=== PATIENT | female | born 1965 | race Caucasian/White ===

== ENCOUNTER 2022-11-21 21:54 | Emergency (ER) | payer OTHER, SELFPAY ==
[2022-11-21 22:05] VITALS: BP 174/90; PULSE 86; RESP 20; TEMP 36.6; O2SAT 96; BMI 28.3
--- NOTE | 2022-11-21 22:31 | DI.CT.S_ITS ---
PROCEDURE: CT ABDOMEN PELVIS W CON INDICATIONS: Generalized abdominal discomfort TECHNIQUE: After the administration of IV contrast, axial sections were acquired from the lung bases to the pubic symphysis. Coronal and sagittal reformats were performed. For radiation dose reduction, the following was used: automated exposure control, adjustment of mA and/or kV according to patient size. COMPARISON: None. FINDINGS: Image quality: Excellent. Lung bases: Unremarkable. Heart: Heart is normal in size. ABDOMEN: Liver: No mass lesion. Gallbladder: Within normal limits without calcified gallstones. Biliary ducts: No biliary ductal dilatation. Pancreas: Unremarkable. Spleen: Normal in size. Adrenal Glands: No adrenal nodules. Kidneys and Ureters: No hydronephrosis. Stomach and Bowel: Stomach, small bowel loops, and colon are normal in caliber and wall thickness. The appendix is normal. Peritoneum: No abnormal intraperitoneal fluid. No free air. Ventral Wall: No hernia. Abdominal Nodes: No retroperitoneal or mesenteric adenopathy by size criteria. Vessels: Aorta and inferior vena cava are normal in size. PELVIS: Pelvic Organs: There is an enhancing mass within the right aspect of the uterus measuring up to 3.5 x 3.0 cm likely representing a fibroid. There is a suspected submucosal component. Bladder: Unremarkable. Pelvic Nodes: No enlarged lymph nodes. Miscellaneous: No inguinal hernias are seen. Bones: Visualized osseous structures demonstrate no suspicious focal lesions. IMPRESSION: 1. Right paracentral uterine mass likely representing a fibroid with suspected submucosal extension. Dictated by: Genaro Fuentes M.D. on 11/22/2022 at 0:04 Approved by: Genaro Fuentes M.D. on 11/22/2022 at 0:06
--- NOTE | 2022-11-21 22:31 | ED.GENADULT ---
HPI - General Adult General Chief complaint: Abdominal Pain Stated complaint: abd pain Time Seen by Provider: 11/21/22 22:28 Source: patient Mode of arrival: Ambulatory History of Present Illness HPI narrative: Patient is a 57-year-old female who is here for evaluation of abdominal pain. She states she has had abdominal pain for the past several days/weeks. She is been having some issues with constipation because she is been on medicines for back pain. She did have a loose bowel movement this morning. Before that it had been for 5 days since her last bowel movement. No vomiting. No urinary symptoms. No fevers. No vaginal symptoms. She was concerned about potentially being constipated. Review of Systems Constitutional Constitutional: Reports system reviewed and no additional complaints, except as documented Gastrointestinal Gastrointestinal: Reports system reviewed and no additional complaints, except as documented Genitourinary Genitourinary: Reports system reviewed and no additional complaints, except as documented Musculoskeletal Musculoskeletal: Reports system reviewed and no additional complaints, except as documented Integumentary/Breasts Skin/Breast: Reports system reviewed and no additional complaints, except as documented Patient History Social History Smoking Status: Current every day smoker Smoking Status: Current every day smoker Substance Use Type: does not use Exam Initial Vital Signs Initial Vital Signs: Vital Signs Temperature 98 F 11/21/22 22:05 Pulse Rate 86 11/21/22 22:05 Respiratory Rate 20 11/21/22 22:05 Blood Pressure 174/90 H 11/21/22 22:05 Pulse Oximetry 96 11/21/22 22:05 Oxygen Delivery Method Room Air 11/21/22 22:05 HENAZ Head: normal to inspection and normocephalic Resp Effort & Inspection: normal respiratory effort Auscultation: clear to auscultation bilaterally Cardio Rate: regular rate Rhythm: regular rhythm GI Inspection: normal to inspection and non-distended Palpation: soft, No firm, No guarding and tender (Diffuse) Neuro General: patient alert, patient awake and moves all extremities Extrem General: capillary refill normal Course Orders Ordered: ED Orders 11/21/22 22:21 EKG-12 Lead Stat 11/21/22 22:31 CT abdomen pelvis w con Stat 11/21/22 22:32 Complete Blood Count AUTO DIFF Stat Comprehensive Metabolic Panel Stat Lipase Stat Ondansetron HCl (Ondansetron 4 Mg Odt) 4 mg PO NOW PRN PRN Reason: Nausea And Vomiting Ondansetron HCl (Ondansetron 4 Mg/2 Ml Inj) 4 mg IV NOW PRN PRN Reason: Nausea And Vomiting Vital Signs Vital signs: Vital Signs - 8 hr 11/21/22 22:05 Temperature 98 F Pulse Rate 86 Respiratory Rate 20 Blood Pressure 174/90 H Pulse Oximetry 96 Oxygen Delivery Method Room Air Medical Decision Making Lab Data Lab results reviewed: Yes I reviewed the patient's lab results. 11/21/22 22:32 11/21/22 22:32 Labs: Lab Results 11/21/22 11/21/22 Range/Units 22:32 22:32 WBC 7.8 (4.5-11.0) X10^3/uL RBC 4.60 (4.0-5.2) X10^6/uL Hgb 14.2 (12.0-16.0) g/dL Hct 40.9 (36-46) % MCV 88.9 (80-100) fL MCH 30.9 (26-34) PG MCHC 34.7 (30-36) % RDW 13.7 (11.6-14.8) % Plt Count 302 (150-400) X10^3/uL Neut % (Auto) 62.3 (50-75) % Lymph % (Auto) 25.8 (25-40) % [place] % (Auto) 9.0 (3-14) % Eos % (Auto) 2.8 (2-4) % Baso % (Auto) 0.1 (0-2) % Neut # (Auto) 4900 (7909-7189) /uL Lymph # (Auto) 2000 (4481-5213) /uL [place] # (Auto) 700 (0-900) /uL Eos # (Auto) 200 (0-450) /uL Baso # (Auto) 0 (0-100) /uL Sodium 138 (137-145) mmol/L Potassium 4.5 (3.4-5.1) mmol/L Chloride 108 H (98-107) mmol/L Carbon Dioxide 25 (22-32) mmol/L BUN 25 H (7-17) mg/dL Creatinine 0.58 (0.52-1.04) mg/dL Estimated GFR > 60 (>60) mL/min BUN/Creatinine Ratio 43.1 H (6-22) Glucose 107 H (70-100) mg/dL Calcium 9.4 (8.4-10.2) mg/dL Total Bilirubin 0.4 (0.2-1.3) mg/dL AST 37 H (14-36) IU/L ALT 44 H (<35) IU/L Alkaline Phosphatase 132 H (38-126) U/L Total Protein 7.6 (6.3-8.2) g/dL Albumin 4.0 (3.5-5.0) g/dL Globulin 3.6 (1.7-4.1) g/dL Albumin/Globulin Ratio 1.1 (1.0-2.8) Lipase 140 (23-300) U/L Point of Care Testing Test Results Negative Urine Dip Bedside Urine Glucose Negative Bedside Urine Bilirubin - Negative Bedside Urine Ketone +/- 5 Urine Specific [place] 1.020 Bedside Urine Occult Blood - Negative Bedside Urine pH 6.0 Bedside Urine Protein - Negative Bedside Urine Urobilinogen - Negative Bedside Urine Nitrite - Negative Bedside Urine Leukocytes +/- 15 Esterase Point of care testing: Point of Care Testing Test Results Negative Urine Dip Bedside Urine Glucose Negative Bedside Urine Bilirubin - Negative Bedside Urine Ketone +/- 5 Urine Specific [place] 1.020 Bedside Urine Occult Blood - Negative Bedside Urine pH 6.0 Bedside Urine Protein - Negative Bedside Urine Urobilinogen - Negative Bedside Urine Nitrite - Negative Bedside Urine Leukocytes +/- [address] scan - abdomen/pelvis: Radiologist's Impression: PROCEDURE:? CT ABDOMEN PELVIS W CON ? INDICATIONS:? Generalized abdominal discomfort ? TECHNIQUE:? After the administration of IV contrast, axial sections were acquired from the lung bases to the pubic symphysis.? Coronal and sagittal reformats were performed.? For radiation dose reduction, the following was used:? automated exposure control, adjustment of mA and/or kV according to patient size. ? COMPARISON:? None. ? FINDINGS:? Image quality:? Excellent.? ? Lung bases:? Unremarkable.? ? Heart:? Heart is normal in size. ? ? ABDOMEN: Liver:? No mass lesion. Gallbladder:? Within normal limits without calcified gallstones.? ? Biliary ducts:? No biliary ductal dilatation.? ? Pancreas:? Unremarkable.? ? Spleen:? Normal in size.? ? Adrenal Glands:? No adrenal nodules.? ? Kidneys and Ureters:? No hydronephrosis.? ? ? Stomach and Bowel:? Stomach, small bowel loops, and colon are normal in caliber and wall thickness.? The appendix is normal. Peritoneum:? No abnormal intraperitoneal fluid.? No free air.? ? Ventral Wall: ? No hernia.? Abdominal Nodes:? No retroperitoneal or mesenteric adenopathy by size criteria.? Vessels:? Aorta and inferior vena cava are normal in size.? ? PELVIS: Pelvic Organs:? There is an enhancing mass within the right aspect of the uterus measuring up to 3.5 x 3.0 cm likely representing a fibroid.? There is a suspected submucosal component. Bladder:? Unremarkable.? ? Pelvic Nodes: No enlarged lymph nodes.? Miscellaneous: No inguinal hernias are seen. ? ? ? Bones:? Visualized osseous structures demonstrate no suspicious focal lesions. ? IMPRESSION:? ? 1. Right paracentral uterine mass likely representing a fibroid with suspected submucosal extension.? MDM Narrative Medical decision making narrative: Labs are unremarkable. CT scan shows uterine fibroid but I have low suspicion that this is the cause of her discomfort today. There was no signs of any infectious etiology that would require antibiotics. No surgical indication found. She denies any urinary symptoms. Low suspicion for cardiac or lung pathology as the cause of her symptoms as well. Plan will be is to discharge the patient home. She was given return precautions. Advised that she could take some yodu-zny-zalmamy medicine such as Pepto-Bismol in order to off some of her symptoms as well. She expressed understanding and agreement with plan. Discharge Plan Departure Patient Disposition: Home Clinical Impression: Abdominal pain Instructions: DI for Abdominal Pain-Adult Activity Restrictions/Additional Instructions: Recommend that you continue to take all of your medications as directed and keep all of your scheduled medical appointments. I do recommend a bland diet for the next couple days. Return to the emergency department for new or worsening symptoms. Referrals: Howard Akins MD [Primary Care Provider] - Stand Alone Forms: Patient Portal/API
[2022-11-21 22:40] LABS: Add Manual Diff / Slide Review NO; Basophils Absolute Auto 0 /uL (0-100); Basophils Percent Auto 0.1 % (0-2); Eosinophils Absolute Auto 200 /uL (0-450); Eosinophils Percent Auto 2.8 % (2-4); Hematocrit 40.9 % (36-46); Hemoglobin 14.2 g/dL (12.0-16.0); Lymphocytes Absolute Auto 2000 /uL (1100-4500); Lymphocytes Percent Auto 25.8 % (25-40); Mean Corpuscular HGB Conc 34.7 % (30-36); Mean Corpuscular Hemoglobin 30.9 PG (26-34); Mean Corpuscular Volume 88.9 fL (80-100); Monocytes Absolute Auto 700 /uL (0-900); Neutrophils Absolute Auto 4900 /uL (1500-7000); Neutrophils Percent Auto 62.3 % (50-75); Platelet Count 302 X10^3/uL (150-400); Red Cell Distribution Width 13.7 % (11.6-14.8); White Blood Cell Count 7.8 X10^3/uL (4.5-11.0)
[2022-11-21 22:53] LABS: Alanine Aminotransferase 44 IU/L (<35); Albumin Globulin Ratio 1.1 (1.0-2.8); Alkaline Phosphatase 132 U/L (38-126); Aspartate Aminotransferase 37 IU/L (14-36); BUN Creatinine Ratio 43.1 (6-22); Bilirubin Total 0.4 mg/dL (0.2-1.3); Blood Urea Nitrogen 25 mg/dL (7-17); Calcium 9.4 mg/dL (8.4-10.2); Carbon Dioxide 25 mmol/L (22-32); Chloride 108 mmol/L (98-107); Estimated Glomerular Filt Rate > 60 mL/min (>60); Globulin 3.6 g/dL (1.7-4.1); Glucose 107 mg/dL (70-100); HEMOLYSIS 46 (0-50); Lipase 140 U/L (23-300); Potassium 4.5 mmol/L (3.4-5.1); Sodium 138 mmol/L (137-145); Total Protein 7.6 g/dL (6.3-8.2)
[2022-11-22 00:48] VITALS: BP 168/87; PULSE 81; RESP 20; O2SAT 97
== END 2022-11-22 00:49 | disposition home or self-care (01) ==
PROVIDERS: Emergency Provider Emergency Medicine; Family Provider Family Medicine; PCP Family Medicine
DX: R10.84 Generalized abdominal pain (principal); K59.00 Constipation, unspecified
CPT/HCPCS: 36415; 74177; 80053; 81003; 81025; 83690; 85025; 99283; 99284; Q9967

== ENCOUNTER → 2023-01-01 11:58 | Outpatient (CLI) | payer OTHER, SELFPAY ==
--- NOTE | 2023-01-01 12:05 | DI.MRI.S_ITS ---
PROCEDURE: MR LUMBAR SPINE WO CON INDICATIONS: Radiculopathy, lumbar region TECHNIQUE: Noncontrast sagittal T1 spin echo and T2 fast echo, coronal T2, sagittal STIR, and T2 fast spin echo through the lumbar spine. COMPARISON: Outside Film, CR, XR ABDOMEN 1 VIEW, 11/27/2022, 10:02. FINDINGS: Image quality: Excellent. Alignment and Curvature: 5 lumbar type vertebral bodies are present by plain film. 3 mm of retrolisthesis of L1 on L2 and L2 on L3. 2 mm of retrolisthesis of L4 on L5. Mild kyphosis at T12-L1. Bone Marrow: Marrow is of normal overall signal. Linear low T1/T2 signal intensity traverses the inferior T12, superior L1, superior L4, and inferior L5 vertebral bodies, which demonstrate mild wedging. There is mild reactive signal throughout the endplates of the lumbar and lower thoracic spine. There is moderate ill-defined T2 signal elevation within the T10 vertebral body. Spinal Cord: Conus medullaris terminates at the mid L2 level. Visualized cord demonstrates normal signal and size. Paraspinous Soft Tissues: No paravertebral masses. There is mild ill-defined STIR signal elevation within the paraspinous soft tissues at T12-L1, L4 and L5. T12-L1: Mild disc height loss and desiccation. Mild diffuse disc bulge/osteophyte. Mild retropulsion at the superior L1 level. Mild facet and ligamentum flavum hypertrophy. Mild canal stenosis. Mild bilateral foraminal stenosis. L1-L2: Moderate disc height loss and desiccation. Mild diffuse disc bulge. Mild canal stenosis. Mild bilateral foraminal stenosis. L2-L3: Mild disc desiccation and diffuse disc bulge. Mild bilateral facet hypertrophy. Mild epidural lipomatosis. Mild canal stenosis. Mild bilateral foraminal stenosis. L3-L4: Mild disc desiccation and diffuse disc bulge. Mild facet and ligamentum flavum hypertrophy. Mild epidural lipomatosis. Mild canal stenosis. Mild bilateral foraminal stenosis. L4-L5: Mild disc desiccation and diffuse disc bulge. Mild bilateral facet hypertrophy. Mild epidural lipomatosis. Mild canal stenosis. Mild bilateral foraminal stenosis L5-S1: Mild disc desiccation and diffuse disc bulge. Mild bilateral facet hypertrophy. Mild canal stenosis. Moderate subarticular foraminal stenosis bilaterally. IMPRESSION: 1. Mild subacute compression fractures T12, L1, L4, and L5. There is a possible subacute compression fracture of T10; this could be further assessed with a noncontrast thoracic spine MRI, if clinically indicated. 2. Multilevel degenerative disc and facet disease, as well as ligamentum flavum hypertrophy and epidural lipomatosis. 3. Mild multilevel canal stenosis. 4. Multilevel foraminal stenoses, worst at L5-S1 where there are moderate foraminal stenoses bilaterally. Dictated by: Apryl Rene M.D. on 01/01/2023 at 13:03 Approved by: Apryl Rene M.D. on 01/01/2023 at 13:08
== END ==
PROVIDERS: Family Provider Family Medicine; PCP Nurse Practitioner Family; Referring Provider Podiatrist; Visit Provider Physical Medicine & Rehabilitation
DX: M48.54XA Collapsed vertebra, not elsewhere classified, thoracic region, initial encounter for fracture (principal); M48.56XA Collapsed vertebra, not elsewhere classified, lumbar region, initial encounter for fracture; M51.16 Intervertebral disc disorders with radiculopathy, lumbar region; M51.17 Intervertebral disc disorders with radiculopathy, lumbosacral region; M47.26 Other spondylosis with radiculopathy, lumbar region; M47.27 Other spondylosis with radiculopathy, lumbosacral region; M48.061 Spinal stenosis, lumbar region without neurogenic claudication; M48.07 Spinal stenosis, lumbosacral region
CPT/HCPCS: 72148

== ENCOUNTER 2023-01-11 17:57 | Emergency (ER) | payer OTHER, SELFPAY ==
[2023-01-11 18:05] VITALS: TEMP 37.2; BMI 26.6
[2023-01-11 18:06] VITALS: BP 192/87; PULSE 80; RESP 18; O2SAT 96
--- NOTE | 2023-01-11 18:40 | ED_ITS ---
HPI - Back Pain/Injury <Pako Rubio PA-C - Last Filed: 01/11/23 19:02> General Chief Complaint: Back Pain/Injury Stated Complaint: Back spasms/pain Time Seen by Provider: 01/11/23 18:22 Source: patient and EMS History of Present Illness HPI Narrative: This is a 57-year-old female presents emergency department complaining of back spasms. Patient states that she had for lumbar compression fractures 4 months ago which were treated nonoperatively. Patient states that she is had down earlier today in her back started ?spasming?. She is working with an orthopedic spine surgeon and received an MRI which showed no significant findings but she will follow up with him for further discussion. Patient denies any urinary or bowel incontinence, saddle paresthesia, or any other concerning signs or symptoms Related Data Previous Rx's Medication Instructions Recorded cyclobenzaprine 10 mg tablet 10 mg PO TID #30 tabs 01/11/23 lidocaine 4 % topical patch 1 patch topical BID PRN pain #10 ea 01/11/23 methylprednisolone 4 mg tablets in 4 mg PO DAILY #21 ea 01/11/23 a dose pack (Medrol (Rolan)) Allergies Allergy/AdvReac Type Severity Reaction Status Date / Time No Known Drug Allergies Allergy Verified 01/11/23 18:04 Review of Systems <KALA Stewart Last Filed: 01/11/23 19:02> Review of Systems Narrative: GENERAL: Denies chills, fatigue, malaise, fever, sweats. HEENT: Denies sinus pain, ear pain, sore throat, difficulty swallowing, dizziness. RESPIRATORY: Denies dyspnea, cough, wheezing, hemoptysis, sputum. CARDIOVASCULAR: Denies chest pain, palpitations, orthopnea, edema, GASTROINTESTINAL: Denies nausea, vomiting, abdominal pain, diarrhea, constipation, melena. : Denies dysuria, frequency, incontinence, hematuria, urinary retention. MUSCULOSKELETAL: Reports back spasms SKIN: Denies rash, skin lesions, or other NEUROLOGIC: Denies weakness, headache, numbness, change in speech, confusion, seizures, incoordination. PSYCHIATRIC: No concerning psychosocial issues. 12 point review of systems is negative except for those stated above Patient History <KALA Stewart Last Filed: 01/11/23 19:02> Social History (Reviewed 11/22/22 @ 00:30 by FRED Khanna Smoking Status: Current every day smoker Smoking Status: Current every day smoker Substance Use Type: does not use Exam <Pako Rubio PA-C - Last Filed: 01/11/23 19:02> Narrative Exam Narrative: GENERAL: Well-developed patient, in mild distress. HEAD: Atraumatic. Normocephalic. EYES: Pupils equal round and reactive. Extraocular motions intact. No scleral icterus. No injection or drainage. ENT: Nose without bleeding, purulent drainage. Throat without erythema, tonsillar hypertrophy or exudate. Airway patent. NECK: Trachea midline. Non tender CARDIOVASCULAR: Regular rate and rhythm without murmurs, gallops, or rubs. RESPIRATORY: Clear to auscultation. Breath sounds equal bilaterally. No wheezes, rales, or rhonchi. GASTROINTESTINAL: Abdomen soft, non-tender, nondistended. EXTREMITIES: No edema or joint tenderness. BACK: Nontender without deformity or crepitance. No flank tenderness. NEURO: AOx3. SKIN: No rash or erythema of visible areas Back: No significant tenderness to palpation to the midline spine or paraspinal muscles Initial Vital Signs Initial Vital Signs: Vital Signs Temperature 98.9 F 01/11/23 18:05 <Evelyn Chakraborty DO - Last Filed: 01/26/23 04:07> Initial Vital Signs Initial Vital Signs: Vital Signs Temperature 98.9 F 01/11/23 18:05 Course <Pako Rubio PA-C - Last Filed: 01/11/23 19:02> Orders Ordered: Discontinued Medications Ketorolac Tromethamine (Ketorolac 30 Mg/Ml Vial) 15 mg IM NOW ONE Stop: 01/11/23 18:49 Last Admin: 01/11/23 18:53 Dose: Not Given Documented By: LENNY Ketorolac Tromethamine (Ketorolac 30 Mg/Ml Vial) 15 mg IV NOW ONE Stop: 01/11/23 18:52 Last Admin: 01/11/23 18:56 Dose: 15 mg Documented By: LENNY Vital Signs Vital signs: Vital Signs - 8 hr 01/11/23 18:05 01/11/23 18:06 Temperature 98.9 F Pulse Rate 80 Respiratory Rate 18 Blood Pressure 192/87 H Pulse Oximetry 96 Oxygen Delivery Method Room Air <Evelyn Chakraborty DO - Last Filed: 01/26/23 04:07> Orders Ordered: Discontinued Medications Ketorolac Tromethamine (Ketorolac 30 Mg/Ml Vial) 15 mg IM NOW ONE Stop: 01/11/23 18:49 Last Admin: 01/11/23 18:53 Dose: Not Given Documented By: LENNY Ketorolac Tromethamine (Ketorolac 30 Mg/Ml Vial) 15 mg IV NOW ONE Stop: 01/11/23 18:52 Last Admin: 01/11/23 18:56 Dose: 15 mg Documented By: LENNY Vital Signs Vital signs: Vital Signs - 8 hr 01/11/23 18:05 01/11/23 18:06 Temperature 98.9 F Pulse Rate 80 Respiratory Rate 18 Blood Pressure 192/87 H Pulse Oximetry 96 Oxygen Delivery Method Room Air MDM - Back Pain/Injury <Pako Rubio PA-C - Last Filed: 01/11/23 19:02> MDM Narrative Medical decision making narrative: MDM * differential diagnosis includes but not limited to acute spinal fracture, spinal cord compromise, lumbosacral strain * Prior records reviewed: Patient was seen here 2 months ago for abdominal pain * My lab interpretation: None obtained * My imaging interpretation: None obtained * Clinical Decision Rules/Scores evaluated: None * Independent discussions with: None ED Course: This is a 57-year-old female presents emergency department due to suspected muscular back pain. Patient is already taking diclofenac. Will prescribe muscle relaxants, steroid burst, and lidocaine patches. Also recommended Tylenol. Patient has not established spine surgeon she was working where the and recommended she follow up with them for long-term management of the pain. No red flag symptoms. Shared Decision Making: Discussed plan with patient who is comfortable with the plan Social Considerations: None Disposition: Discharged to home Discharge Plan Departure Patient Disposition: Home Clinical Impression: Strain of lumbar region Instructions: DI for Back Spasm Activity Restrictions/Additional Instructions: Thank you for coming to the [facility] Emergency Department today. Please take the medications prescribed as prescribed and as recommended. I recommend he follow up with the orthopedic spine surgeon to discuss her MRI results and to find the best possible solution for your long-term pain. I hope you feel better soon. Please follow up with your primary care provider within a week if your symptoms continue. If you do not have a primary care provider please contact the [facility] Resource line at [phone]. They will ask some questions about your medical history and help you get set up with a provider in the community. Prescriptions: New cyclobenzaprine 10 mg tablet 10 mg PO TID Qty: 30 0RF lidocaine 4 % adhesive patch,medicated 1 patch topical BID PRN (Reason: pain) Qty: 10 0RF methylprednisolone [Medrol (Rolan)] 4 mg tablets,dose pack 4 mg PO DAILY Qty: 21 0RF Referrals: Mary Vaca ARNP [Primary Care Provider] - Stand Alone Forms: Patient Portal/API <Evelyn Chakraborty DO - Last Filed: 01/26/23 04:07> Cosign ED Attending Willature Attestation: I was immediately available in the department for consultation. Documentation has been reviewed.
[2023-01-11] MEDS: KETOROLAC 30 MG/ML VIAL 15 MG IV (18:56)
== END 2023-01-11 19:11 | disposition home or self-care (01) ==
PROVIDERS: Emergency Provider Physician Assistant Medical; Family Provider Family Medicine; PCP Nurse Practitioner Family
DX: S39.012A Strain of muscle, fascia and tendon of lower back, initial encounter (principal)
CPT/HCPCS: 96374; 99283; 99284; J1885

== ENCOUNTER → 2023-01-21 11:59 | Outpatient (CLI) | payer OTHER, SELFPAY ==
--- NOTE | 2023-01-21 | DI.RAD.S_ITS ---
Bone Density Report Name: ADDI SLADE Age: 57 Sex: Female Ethnicity: White Date of : 1965 Indication: postmenopausal; screening for osteoporosis; prior fracture; Referring Provider: ELAINA REEDER Study: Bone densitometry was performed. Exam Date: January 21, 2023 Accession number: [id number] Bone Density: Region BMD T-score Z-score Classification AP Spine(L1-L4) 0.567 -4.4 -3.3 Osteoporosis Femoral Neck (Left) 0.507 -3.1 -2.0 Osteoporosis Total Hip (Left) 0.628 -2.6 -1.9 Osteoporosis Femoral Neck (Right) 0.437 -3.7 -2.6 Osteoporosis Total Hip (Right) 0.648 -2.4 -1.7 Osteopenia Total Hip Mean 0.638 -2.5 -1.8 Osteoporosis World Health Organization criteria for BMD impression classify patients as: Normal (T-score at or above -1.0), Osteopenia (T-score between -1.0 and -2.5), or Osteoporosis (T-score at or below -2.5). 10-year Fracture Risk: FRAX not reported because: Some T-score for Spine Total or Hip Total or Femoral Neck at or below -2.5 Prior hip or vertebral fracture Impression: The patient has established osteoporosis, based on the Total Spine T-score and the existence of a prior fracture. The patient has risk factors, including: previous fracture. Discussion: HIGH RISK OF FRACTURE. BONE DENSITY IS UNDESIRABLY LOW AT ONE OR MORE SKELETAL SITES, CONSISTENT WITH POSTMENOPAUSAL OSTEOPOROSIS. This patient's lowest T-score, in a patient who has previously fractured, meets the World Health Organization's (WHO) criteria for severe osteoporosis. In untreated patients, the risk of osteoporotic fracture increases approximately two-fold for each 1.0 SD decrease in T-score. Low bone density is not the only risk factor for fracture; also consider factors such as patient's age, frailty or poor health, risk of falling, risk of injury, previous osteoporotic fracture, family history of osteoporosis, cigarette smoking, low body weight, etc. Not everyone with low bone mineral density has osteoporosis; osteomalacia and other metabolic bone disorders should also be considered. Patients who have osteoporosis should be evaluated for specific diseases and conditions (secondary causes) that may cause or contribute to bone loss. The [place] [employer]ocrinologists (AACE) and National Osteoporosis Foundation (NOF) recommend pharmacologic intervention for all postmenopausal women with a previous hip or vertebral fracture and a T-score in this range. The patient should follow a healthful lifestyle (good nutrition with adequate calcium and vitamin D, and appropriate weight-bearing exercise). Follow-Up: Consider a repeat BMD and Vertebral Fracture Assessment (VFA) exam in 2 years or sooner if medically necessary, to reassess this patient's status. Reported by: JUICE BARRIOS M.D. on 01/21/2023 1:21:00 PM.
== END ==
PROVIDERS: Family Provider Family Medicine; PCP Nurse Practitioner Family; Referring Provider Physical Medicine & Rehabilitation; Visit Provider Physical Medicine & Rehabilitation
DX: M81.0 Age-related osteoporosis without current pathological fracture (principal); Z78.0 Asymptomatic menopausal state; Z92.241 Personal history of systemic steroid therapy
CPT/HCPCS: 77080

== ENCOUNTER 2023-02-02 13:30 | Emergency (ER) | payer OTHER, SELFPAY ==
[2023-02-02] VITALS (12 sets, daily range): BP systolic 147–185; BP diastolic 82–98; PULSE 86–110; RESP 16–28; TEMP 36.6; O2SAT 93–96; BMI 26.6
--- NOTE | 2023-02-02 13:37 | ED_ITS ---
HPI - Back Pain/Injury General Chief Complaint: Back Pain/Injury Stated Complaint: back spasms Time Seen by Provider: 02/02/23 13:30 Source: patient and EMS History of Present Illness HPI Narrative: 57-year-old female with history of back pain presents by EMS from home for back spasms. Patient has been on multiple muscle relaxers in the past and they have had variable success in controlling her symptoms. EMS states that when they arrived the patient was standing, gripping her counter tops, hyperventilating, and requesting fentanyl for pain. Patient has been seen at [facility] in the past for back pain and subsequently had follow up with orthopedic surgery and primary care. On arrival patient did receive 2.5 mg of IV Versed by EMS. Patient denies new trauma, bowel or bladder incontinence, denies saddle anesthesia. He reports extreme difficulty in walking due to the pain and severity of her back spasms. History otherwise limited as patient is moaning in pain Related Data Previous Rx's Medication Instructions Recorded cyclobenzaprine 10 mg tablet 10 mg PO TID #30 tabs 01/11/23 lidocaine 4 % topical patch 1 patch topical BID PRN pain #10 ea 01/11/23 methylprednisolone 4 mg tablets in 4 mg PO DAILY #21 ea 01/11/23 a dose pack (Medrol (Rolan)) cyclobenzaprine 10 mg tablet 10 mg PO TID PRN muscle spasm #30 02/02/23 tabs Allergies Allergy/AdvReac Type Severity Reaction Status Date / Time No Known Drug Allergies Allergy Verified 02/02/23 13:36 Review of Systems Review of Systems Narrative: Reports: Back spasms Other review of systems negative except as previously stated Patient History Social History Smoking Status: Current every day smoker Smoking Status: Current every day smoker Substance Use Type: does not use Exam Initial Vital Signs Initial Vital Signs: Vital Signs Temperature 97.8 F 02/02/23 13:29 Pulse Rate 107 H 02/02/23 13:29 Respiratory Rate 24 02/02/23 13:29 Blood Pressure 185/93 H 02/02/23 13:29 Pulse Oximetry 95 02/02/23 13:29 Oxygen Delivery Method Room Air 02/02/23 13:29 Const: Awake, alert, eyes closed, grunting in pain Cardiac: tachycardia, regular rhythm RESP: unlabored, clear bilaterally, no wheezing GI: Atraumatic, soft, nontender, nondistended, no rebound, no guarding MSK: Atraumatic, full range of motion, pulses equal MSK back: no midline tenderness, no stepoffs. Diffuse tenderness over thoracic and lumbar back Skin: Warm, Dry, intact, no rashes Neuro: AO x3, CN II-XII grossly intact, moves all extremities Course Course Course Narrative: Patient presenting for musculoskeletal back pain. Was informed by EMS the patient screamed repeatedly for fentanyl prior to arrival. This is similar to previous episodes of back pain, there is no indication for additional imaging. There is no indication for narcotics. Orders Ordered: Discontinued Medications Dexamethasone (Dexamethasone 10 Mg/Ml Vial) 10 mg IV NOW ONE Stop: 02/02/23 13:36 Last Admin: 02/02/23 13:49 Dose: 10 mg Documented By: MYESHA Acetaminophen (Ofirmev) 1,000 mg in 100 mls @ 400 mls/hr IV NOW ONE Stop: 02/02/23 13:49 Last Infusion: 02/02/23 14:29 Dose: Infused Documented By: Admin: 02/02/23 13:49 Dose: 400 mls/hr Documented By: MYESHA Ketamine HCl (Ketamine 500 Mg/5 Ml Inj) 11 mg IV NOW ONE Stop: 02/02/23 17:24 Last Admin: 02/02/23 17:46 Dose: 11 mg Documented By: MYESHA Ketorolac Tromethamine (Ketorolac 30 Mg/Ml Vial) 15 mg IV NOW ONE Stop: 02/02/23 13:36 Last Admin: 02/02/23 13:49 Dose: 15 mg Documented By: MYESHA Lidocaine (Lidocaine Patch 1 Each Adh..Patch) 1 each TOP NOW ONE Stop: 02/02/23 13:36 Last Admin: 02/02/23 14:00 Dose: Not Given Documented By: MYESHA Methocarbamol (Methocarbamol 500 Mg Tablet) 1,000 mg PO NOW ONE Stop: 02/02/23 13:36 Last Admin: 02/02/23 13:57 Dose: 1,000 mg Documented By: MYESHA Reevaluation(s) Reevaluation #1: Patient is still endorsing pain, we will add analgesic ketamine. Reevaluation #2: Pain improved with analgesic ketamine. Patient able to transfer to wheelchair and use the restroom. Patient states that in the past Flexeril has worked better for her muscle spasm. Flexeril sent to pharmacy. PCP follow-up advised. Discharge instructions Vital Signs Vital signs: Vital Signs - 8 hr 02/02/23 13:29 02/02/23 13:31 02/02/23 13:31 Temperature 97.8 F Pulse Rate 107 H 110 H Respiratory Rate 24 26 H Blood Pressure 185/93 H 185/93 H Pulse Oximetry 95 96 Oxygen Delivery Method Room Air 02/02/23 14:00 02/02/23 14:00 02/02/23 14:30 Temperature Pulse Rate 97 H Respiratory Rate 28 H Blood Pressure 172/83 H 147/82 H Pulse Oximetry 95 Oxygen Delivery Method Room Air 02/02/23 14:30 02/02/23 15:00 02/02/23 15:30 Temperature Pulse Rate 92 H 87 88 Respiratory Rate 23 21 22 Blood Pressure Pulse Oximetry 95 93 96 Oxygen Delivery Method Room Air 02/02/23 15:34 02/02/23 16:16 02/02/23 16:17 Temperature Pulse Rate 86 91 H Respiratory Rate 23 Blood Pressure 167/96 H Pulse Oximetry 94 93 Oxygen Delivery Method Room Air 02/02/23 17:33 02/02/23 17:33 Temperature Pulse Rate 94 H Respiratory Rate Blood Pressure 170/97 H Pulse Oximetry 93 Oxygen Delivery Method Discharge Plan Departure Patient Disposition: Home Clinical Impression: Muscle spasm Instructions: DI for Back Spasm Prescriptions: New cyclobenzaprine 10 mg tablet 10 mg PO TID PRN (Reason: muscle spasm) Qty: 30 0RF No Action cyclobenzaprine 10 mg tablet 10 mg PO TID Qty: 30 0RF lidocaine 4 % adhesive patch,medicated 1 patch topical BID PRN (Reason: pain) Qty: 10 0RF methylprednisolone [Medrol (Rolan)] 4 mg tablets,dose pack 4 mg PO DAILY Qty: 21 0RF Referrals: Mary Vaca ARNP [Primary Care Provider] - Stand Alone Forms: Patient Portal/API
[2023-02-02] MEDS: ACETAMINOPHEN IV 1,000 MG/100 ML VIAL 400 MG IV (13:49)
[2023-02-02] MEDS: KETOROLAC 30 MG/ML VIAL 15 MG IV (13:49)
[2023-02-02] MEDS: DEXAMETHASONE 10 MG/ML VIAL IV (13:49)
[2023-02-02] MEDS: methocarbamoL 500 MG TABLET 1000 MG PO (13:57)
--- NOTE | 2023-02-02 15:50 | PC.NURSE ---
Pt ambulated with FWW within room and was able to get into a wheelchair. Pt has walker at home which she uses at times. Provider made aware of successful ambulation.
--- NOTE | 2023-02-02 17:19 | PC.NURSE ---
Called pharmacy and coordinator regarding ketamine order as per MAR as not available. New verbal order from provider. Coordinator made aware and will mix/prepare medication.
[2023-02-02] MEDS: KETAMINE 500 MG/5 ML INJ 11 MG IV (17:46)
== END 2023-02-02 18:30 | disposition home or self-care (01) ==
PROVIDERS: Emergency Provider Emergency Medicine; Family Provider Family Medicine; PCP Nurse Practitioner Family
DX: M62.830 Muscle spasm of back (principal)
CPT/HCPCS: 96365; 96375; 99284; J0131; J1100; J1885

== ENCOUNTER → 2024-01-28 | Outpatient (CLI) | payer BC, MEDICAID, SELFPAY ==
--- NOTE | 2024-01-28 15:52 | DI.MRI.S_ITS ---
PROCEDURE: MR LUMBAR SPINE WO CON INDICATIONS: WEDGE COMP FX T11-12 VERT,FX 4TH LUMBAR VERT TECHNIQUE: Noncontrast sagittal T1 spin echo and T2 fast echo, sagittal STIR, and T2 fast spin echo through the lumbar spine. In cases with scoliosis, additional coronal T2 fast spin echo may be performed. COMPARISON: [facility], MR, MR THORACIC SPINE WO CON, 01/28/2024, 16:06. [facility], CT, CT ABDOMEN PELVIS W CON, 11/21/2022, 23:18. [facility], MR, MR LUMBAR SPINE WO CON, 01/01/2023, 12:04. FINDINGS: Image quality: Excellent. Anatomy: There are 5 nonrib-bearing lumbar vertebrae. Bones: Marrow signal within normal limits. There are chronic compression fractures all lumbar vertebrae as well as the visualized T11 and T12 vertebral bodies, ranging between approximately 10% height loss at the L5 vertebral body to approximately 50% height loss at the L1 vertebral body. No significant retropulsion of fractures. Schmorl's nodes at the superior endplate of T12 and L3 Alignment: Preservation of lumbar lordosis. Discs: Multilevel mild to moderate intervertebral disc height loss and disc desiccation. Spinal cord: The conus medullaris ends at the level of L1-L2. No abnormal cord signal. Muscles: Moderate bilateral paraspinal muscle atrophy. Prevertebral: No prevertebral soft tissue edema. No abdominal aortic aneurysm. No abnormal prevertebral soft tissue mass in the [id number]. Multilevel findings: Disc bulging, facet arthropathy, ligamentum flavum thickening, and hypertrophy of the spinous processes. INDIVIDUAL LEVELS: T12-L1: No significant central canal stenosis. No significant foraminal stenosis. L1-L2: No significant central canal stenosis. No significant foraminal stenosis. L2-L3: No significant central canal stenosis. No significant foraminal stenosis. L3-L4: No significant central canal stenosis. No significant foraminal stenosis. L4-L5: No significant central canal stenosis. No significant foraminal stenosis. L5-S1: No significant central canal stenosis. No significant foraminal stenosis. IMPRESSION: 1. Chronic compression fractures of the visualized thoracolumbar spine, with a maximal height loss of 50% at the L1 vertebral body. 2. No significant central canal or foraminal stenosis. Dictated by: Chandu Burgess M.D. on 02/02/2024 at 10:48 Approved by: Chandu Burgess M.D. on 02/02/2024 at 11:52
--- NOTE | 2024-01-28 15:52 | DI.MRI.S_ITS ---
PROCEDURE: MR THORACIC SPINE WO CON INDICATIONS: WEDGE COMP FX T11-12 VERT,FX 4TH LUMBAR VERT TECHNIQUE: Noncontrast sagittal T1 spine echo and T2 fast spin echo, sagittal STIR, and T2 fast spin echo through the thoracic spine. COMPARISON: [facility], CR, XR LUMBAR SPINE 2 OR 3 VIEWS, 11/06/2022, 15:53. Outside [facility], CR, XR ABDOMEN 1 VIEW, 11/27/2022, 10:02. [facility], MR, MR LUMBAR SPINE WO CON, 01/01/2023, 12:04. FINDINGS: Image quality: Excellent. Alignment and Curvature: Mildly exaggerated thoracic kyphosis. Bone Marrow: Sub cm vertebral body hemangioma along the right T11 posterior vertebral body (02/17). Otherwise, marrow signal within normal limits. No acute vertebral body compression fractures. Chronic compression fractures involving the T8-T12 vertebral bodies, ranging from 5-10% height loss (T8) to 50% height loss (T11). No significant retropulsion of fracture fragments. Schmorl's node at the superior endplate of T11. Discs: Multilevel mild disc height loss and disc desiccation. Mild disc bulges at T6-T7 and T7-T8. Spinal Cord: Visualized spinal cord is normal in size and signal. Paraspinous Soft Tissues: No paravertebral masses. Miscellaneous: On axial images, central canal and foramina appear widely patent at all scanned levels. IMPRESSION: Chronic T8-T12 vertebral body compression fractures, with a maximal height loss of 50% at T11. Dictated by: Chandu Burgess M.D. on 02/02/2024 at 12:20 Approved by: Chandu Burgess M.D. on 02/02/2024 at 12:25
== END ==
LOC: MRI 15:51
PROVIDERS: Family Provider Family Medicine; PCP Nurse Practitioner Family; Referring Provider Physical Medicine & Rehabilitation; Visit Provider Physical Medicine & Rehabilitation
DX: S22.080K Wedge compression fracture of T11-T12 vertebra, subsequent encounter for fracture with nonunion (principal); S32.040A Wedge compression fracture of fourth lumbar vertebra, initial encounter for closed fracture; M48.54XA Collapsed vertebra, not elsewhere classified, thoracic region, initial encounter for fracture; M48.55XA Collapsed vertebra, not elsewhere classified, thoracolumbar region, initial encounter for fracture; M51.34 Other intervertebral disc degeneration, thoracic region; M51.36 Other intervertebral disc degeneration, lumbar region; M47.816 Spondylosis without myelopathy or radiculopathy, lumbar region; M51.44 Schmorl's nodes, thoracic region
CPT/HCPCS: 72146; 72148

== ENCOUNTER → 2024-06-07 11:03 | Outpatient (CLI) | payer OTHER, SELFPAY ==
[2024-06-07 12:23] LABS: Alanine Aminotransferase 18 IU/L (<35); Albumin 4.1 g/dL (3.5-5.0); Albumin Globulin Ratio 1.4 (1.0-2.8); Alkaline Phosphatase 79 U/L (38-126); Aspartate Aminotransferase 23 IU/L (14-36); BUN Creatinine Ratio 29.7 (6-22); Bilirubin Total 0.4 mg/dL (0.2-1.3); Blood Urea Nitrogen 19 mg/dL (7-17); Calcium 9.2 mg/dL (8.4-10.2); Carbon Dioxide 30 mmol/L (22-32); Chloride 99 mmol/L (98-107); Estimated Glomerular Filt Rate > 60 mL/min (>60); Glucose 96 mg/dL (70-100); HEMOLYSIS < 15 (0-50); Potassium 4.3 mmol/L (3.4-5.1); Sodium 136 mmol/L (137-145); Total Protein 7.1 g/dL (6.3-8.2)
[2024-06-07 12:32] LABS: Vitamin D 25 Hydroxy (D3) 22.9 ng/mL (30.0-100.0)
[2024-06-08 09:29] LABS: Calcium 8.5 mg/dL (8.7-10.2); Parathyroid Hormone, Intact 55 pg/mL (15-65)
[2024-06-09 13:36] LABS: Creatinine, Urine 74.4 mg/dL (Not Estab.); N-telo/Creat. Ratio 47 (0-89); N-telopeptide 309 nmol BCE (Not Estab.)
== END ==
PROVIDERS: Family Provider Family Medicine; PCP Nurse Practitioner Family; Referring Provider Internal Medicine Endocrinology, Diabetes & Metabolism; Visit Provider Internal Medicine Endocrinology, Diabetes & Metabolism
DX: M81.0 Age-related osteoporosis without current pathological fracture (principal)
CPT/HCPCS: 36415; 80053; 82306; 82310; 82523; 83970

== ENCOUNTER → 2024-06-09 08:05 | Outpatient (CLI) | payer OTHER, SELFPAY ==
[2024-06-09 09:09] LABS: Calcium 24 Hour Urine 153 mg/day (100-300); Calcium Urine Random 9.9 mg/dL; Collection Time Urine 24 Hours; Total Volume Urine 1550 mL
[2024-06-09 09:10] LABS: Collection Time Urine 24 Hours; Creatinine 24 Hour Urine 750 mg/day (800-1800); Creatinine Urine Random 48.36 mg/dL; Total Volume Urine 1550 mL
== END ==
PROVIDERS: Family Provider Family Medicine; PCP Nurse Practitioner Family; Referring Provider Internal Medicine Endocrinology, Diabetes & Metabolism; Visit Provider Internal Medicine Endocrinology, Diabetes & Metabolism
DX: M81.0 Age-related osteoporosis without current pathological fracture (principal)
CPT/HCPCS: 82340; 82570

== ENCOUNTER → 2024-07-02 14:25 | Outpatient (CLI) | payer OTHER, SELFPAY ==
--- NOTE | 2024-07-02 14:26 | DI.CT.S_ITS ---
PROCEDURE: CT LUNG LOW DOSE SCREENING INDICATIONS: CIGARETTE SMOKER TECHNIQUE: Noncontrast 2.0-2.5 mm thick sections acquired from the pulmonary apices to the posterior costophrenic angles. 7 mm thick axial MIP, and 5 mm coronal and sagittal reformats were then acquired. For radiation dose reduction, the following was used: automated exposure control, adjustment of mA and/or kV according to patient size. COMPARISON: None. FINDINGS: Image quality: Diagnostic. Lungs and Pleura: Central and peripheral airways are normal without bronchial wall thickening or bronchiectasis. Mild emphysematous changes. No nodule, mass, ground-glass opacity, or consolidation. No pleural effusions or pleural calcifications. Lower Neck: No enlarged lymph nodes. Thyroid: Normal CT appearance. Axillae: No enlarged lymph nodes. Chest Wall: No suspicious chest wall lesions. Bones: Multiple lower thoracic and upper lumbar vertebral body compression fractures and vacuum disc phenomenon. No suspicious bone lesions. Thoracic Vessels: The aorta and pulmonary arteries demonstrate normal size. Mediastinum and Elisabeth: No enlarged lymph nodes. Heart: Heart size is normal. No pericardial effusion. Esophagus: No wall thickening. No hiatal hernia. Upper Abdomen: Visualized upper abdomen solid organs and bowel loops appear normal. IMPRESSION: No suspicious pulmonary nodules. LUNG-RADS 1; continued annual screening, if eligible. Clinically Significant Non-pulmonary Findings: None. Dictated by: Abbi Werner M.D. on 07/02/2024 at 16:29 Approved by: Abbi Werner M.D. on 07/02/2024 at 16:32
== END ==
PROVIDERS: Family Provider Family Medicine; PCP Nurse Practitioner Family; Referring Provider Nurse Practitioner Family; Visit Provider Nurse Practitioner Family
DX: F17.210 Nicotine dependence, cigarettes, uncomplicated (principal); Z12.2 Encounter for screening for malignant neoplasm of respiratory organs
CPT/HCPCS: 71271

== ENCOUNTER → 2024-07-05 13:27 | Outpatient (CLI) | payer OTHER, SELFPAY | PROVIDERS: Family Provider Family Medicine; PCP Nurse Practitioner Family; Referring Provider Nurse Practitioner Family; Visit Provider Nurse Practitioner Family | DX: F17.210 Nicotine dependence, cigarettes, uncomplicated (principal); R06.02 Shortness of breath; J98.8 Other specified respiratory disorders; R94.2 Abnormal results of pulmonary function studies | CPT/HCPCS: 94060; 94726; 94729 ==